=== PATIENT | male | born 1960 | race Caucasian/White ===

== ENCOUNTER → 2024-09-21 | Outpatient (CLI) | payer BC ==
[2024-09-21 17:36] LABS: BASOPHIL % 0.4 % (0.2-1.2); EOSINOPHIL % 0.1 % (0.0-5.0); HEMATOCRIT(ML) 42.3 % (37.0-53.0); HEMOGLOBIN 13.8 g/dL (13.9-16.3); LYMPHOCYTES # 1.53 10^3/uL1 (1.0-4.8); LYMPHOCYTES % 22.1 % (24.0-44.0); MEAN CORP HGB 27.9 pg (26-34); MEAN CORP HGB CONCENTRATION 32.6 g/dL (33-36.5); MEAN CORP VOLUME 85.5 fL (78-100); MONOCYTES # 0.6 10^3/uL (0.3-0.8); MONOCYTES % 8.4 % (5.0-12.0); NEUTROPHIL # 4.8 10^3/uL (1.8-7.7); NEUTROPHILS % 68.9 % (41.0-85.0); PLATELET COUNT 236 10^3/uL (150-400); RED BLOOD CELL 4.95 10^6/uL (4.50-5.90); RED CELL DISTRIBUTION WIDTH 13.7 % (11.5-14.5); WHITE BLOOD CELL 6.9 10^3/uL (4.5-11.0)
[2024-09-21 17:37] LABS: +ADD MANUAL DIFF(NO CHRG) NO
[2024-09-21 18:17] LABS: ALBUMIN(ML) 3.8 g/dL (3.4-5.0); ALBUMIN/GLOBULIN RATIO 1.085; ANION GAP 13.5; BUN/CREATININE RATIO 11.65 (10.0-20.0); CALCIUM 8.4 mg/dL (8.4-10.5); CARBON DIOXIDE 26.6 mmol/L (20.0-32); CREATININE SERUM 1.03 mg/dL (0.59-1.40); EST GFR, NON-AA 73.2 (>/=60); POTASSIUM 4.1 mmol/L (3.6-5.2)
[2024-09-21 18:18] LABS: LDL/HDL RATIO 2.4
== END | disposition home or self-care (01) ==
LOC: LAB 17:09
PROVIDERS: ATTEND Nurse Practitioner Family
DX: Z12.5 Encounter for screening for malignant neoplasm of prostate (principal); I10 Essential (primary) hypertension
CPT/HCPCS: 36415; 80050; 80061; 84153; 84439